=== PATIENT | male | born 1955 ===

== ENCOUNTER 2018-02-08 09:00 | Outpatient (CLI) | payer OTHER ==
[~2018-02-08 09:00] MED LIST: DIOVAN160 M1 PO; LEVAQUIN500 MG PO
== END 2018-02-08 17:00 | disposition home or self-care (01) ==
LOC: TOM 09:00
DX: R31.0 Gross hematuria (principal)

== ENCOUNTER → 2018-02-26 | Outpatient (CLI) | payer OTHER | END | disposition home or self-care (01) | LOC: RAD 11:17 | DX: I10 Essential (primary) hypertension (principal) ==

== ENCOUNTER → 2018-05-02 13:21 | Outpatient (CLI) | payer OTHER ==
[~2018-05-02 13:21] MED LIST changes: +CELEXA20 MG PO; +CLONAZEPAM0.5 MG PO; +PROSCAR5 MG PO; +TAMS0.4C PO; +XALATAN; +[UNRECOGNIZED DRUG - OTHER] PO
== END | disposition home or self-care (01) ==
LOC: LAB 13:21
DX: N30.00 Acute cystitis without hematuria (principal)

== ENCOUNTER 2018-05-06 16:30 | Inpatient (IN) | payer OTHER ==
[~2018-05-06 16:30] MED LIST changes: -CELEXA20 MG PO; -CLONAZEPAM0.5 MG PO; -PROSCAR5 MG PO; -TAMS0.4C PO; -XALATAN; -[UNRECOGNIZED DRUG - OTHER] PO
[2018-05-07] MEDS ORDERED: [UNRECOGNIZED DRUG - OTHER] PO (11:07)
[2018-05-07] MEDS ORDERED: PROSCAR5 MG PO (11:07)
[2018-05-07] MEDS ORDERED: CELEXA20 MG PO (11:08)
[2018-05-07] MEDS ORDERED: CLONAZEPAM0.5 MG PO (11:08)
[2018-05-07] MEDS ORDERED: TAMS0.4C PO (11:08)
[2018-05-07] MEDS ORDERED: XALATAN (11:09)
== END 2018-05-10 10:00 | disposition home or self-care (01) | DRG 713 ==
LOC: O/R 05-08 05:56 → SURG 05-08 10:30 → SURH 05-08 14:12 → EDSTATUS 05-08 16:29 → SURG 05-08 16:29 → CIR.AMB 05-08 16:29 → SURH 05-10 10:00
PROVIDERS: Urology
PROC: 0VT08ZZ Resection of Prostate, Via Natural or Artificial Opening Endoscopic (ICD-10-PCS; principal; 2018-05-08 10:30)
DX: N40.1 Benign prostatic hyperplasia with lower urinary tract symptoms (principal); N39.0 Urinary tract infection, site not specified; I10 Essential (primary) hypertension

== ENCOUNTER 2018-10-08 10:39 | Outpatient (CLI) | payer OTHER ==
[~2018-10-08 10:39] MED LIST changes: +CELEXA20 MG PO; +CLONAZEPAM0.5 MG PO; +PROSCAR5 MG PO; +TAMS0.4C PO; +XALATAN; +[UNRECOGNIZED DRUG - OTHER] PO
== END 2018-10-08 15:00 | disposition home or self-care (01) ==
LOC: TOM 10:39
DX: R10.9 Unspecified abdominal pain (principal)

== ENCOUNTER 2018-10-21 10:36 | Outpatient (CLI) | payer OTHER ==
[2018-10-24] MEDS ORDERED: XALATAN (17:34)
== END 2018-10-21 15:00 | disposition home or self-care (01) ==
LOC: RAD 10:36
DX: Z01.818 Encounter for other preprocedural examination (principal); K40.90 Unilateral inguinal hernia, without obstruction or gangrene, not specified as recurrent

== ENCOUNTER 2018-10-22 10:28 | Outpatient (CLI) | payer OTHER ==
[2018-10-24] MEDS ORDERED: XALATAN (17:34)
== END 2018-10-22 10:36 | disposition home or self-care (01) ==
LOC: TOM 10:28
DX: G44.52 New daily persistent headache (NDPH) (principal)

== ENCOUNTER 2018-10-30 06:00 | Day surgery (SDC) | payer OTHER ==
[2018-10-30] MEDS ORDERED: PERCOCET 5-3251 EACH PO (10:25)
[2018-10-30] MEDS ORDERED: NEURONTIN300 MG PO (10:25)
[2018-10-30] MEDS ORDERED: MIRALAX17 GM PO (10:26)
== END 2018-10-30 14:10 | disposition home or self-care (01) ==
LOC: CIR.AMB 06:00
DX: K40.90 Unilateral inguinal hernia, without obstruction or gangrene, not specified as recurrent (principal)

== ENCOUNTER 2024-10-20 09:06 | Outpatient (CLI) | payer OTHER ==
[~2024-10-20 09:06] MED LIST changes: +MIRALAX17 GM PO; +NEURONTIN300 MG PO; +PERCOCET 5-3251 EACH PO
== END 2024-10-20 15:12 | disposition home or self-care (01) ==
LOC: TOM 09:06
PROVIDERS: ATTEND Urology
DX: R31.0 Gross hematuria (principal)